=== PATIENT | male | born 1980 | race Caucasian/White ===

== ENCOUNTER 2018-05-02 15:59 | Emergency (ER) | payer SELFPAY ==
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
[2018-05-02 16:43] LABS: PLATELET COUNT 170 10^3/uL (150-400)
[2018-05-02] MEDS ORDERED: LORazepam 1 MG TAB PO ONE (17:24)
[2018-05-03 09:00] VITALS: BP 107/67
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
--- NOTE | 2018-05-03 09:48 | ASMTTCLDSP ---
TLC Discharge Disposition Disposition: Answers: Discharge If Answers: Yes DISCHARGED: Patient/family given suicide hotline info & [employer] brochure? Disposition Notes: Notes: Pt was offered cab voucher transportation to [facility] but was escorted from the ED by security due to becoming loud, sarcastic and obnoxious to staff. Discharge Concerns/Recommendations: Notes: In consultation with [facility] ED physician, Garret Adams MD, Dr. Adams concurred that pt does not appear to meet 27-65 criteria requiring psychiatric hospitalization as pt does not appear to be an imminent risk of harm to self/others/gravely disabled due to a mental illness condition. Dr. Adams provided verbal order read back vacating M1 hold at 0915 hrs. Pt was offered cab voucher transportation to [facility] but was escorted from the ED by security due to becoming loud, sarcastic and obnoxious to staff. Was patient given the Answers: Not applicable Inpatient Behavioral Health Prohibited Belongings List while in the ED? Psychiatrist vacating M1 Garret Adams MD Hold: Date and time M1 hold 05/03/2018 09:15 AM vacated (time format is hh:mm): Type of Hold: Answers: M1/72-hour Hold Hold initiated by: Answers: ED Physician Date Signed: 05/03/2018 09:47 AM Electronically Signed By:Riccardo Bernard
== END 2018-05-03 10:05 | disposition home or self-care (01) ==
DX: F11.259 Opioid dependence with opioid-induced psychotic disorder, unspecified (principal); R45.851 Suicidal ideations; Z72.0 Tobacco use
CPT/HCPCS: 80305; G0480